=== PATIENT | male | born 1950 | race Caucasian/White ===

== ENCOUNTER 2018-12-15 11:01 | Emergency (ER) | payer MEDICARE, OTHER ==
[~2018-12-15] VITALS: Ht 177.8 cm; Wt 97.8 kg
[~2018-12-15 11:01] MED LIST: CYCL-259 PO; ENAL20TA PO; HYDR-3237 PO; SIMV80TA18 PO; VALS1TAB26 PO; VIT1TABL32 PO
[2018-12-15] MEDS ORDERED: SODIUM CHLORIDE FLUSH 10ML SYR IVF ONE (11:30)
[2018-12-15] MEDS ORDERED: AMLO10TA8 PO (11:38)
[2018-12-15] MEDS ORDERED: LOSA50TA14 PO (11:38)
[2018-12-15] MEDS ORDERED: HYDR12.517 PO (11:38)
[2018-12-15] MEDS ORDERED: ATOR-2 PO (11:38)
--- NOTE | 2018-12-15 11:42 | NUR ---
PT AMBULATORY TO ROOM 14 W/ C/O [facility] STARTED YESTERDAY AND TODAY HE STARTED LOOKING AT SX ON [employer] AND SAID HE DID FAST AND FELT FUNNY AND FELT LIKE ONE SIDE OF HIS FACE WAS DROOPING. PT DENIES HX TIA/CVA. PT RESTING ON [place]. NADN. MONITORS IN PLACE. PIV INITIATED.
[2018-12-15 11:59] LABS: BASOPHILS # (AUTO) 0.02 x10^3/uL (0-0.1); BASOPHILS % (AUTO) 0 % (0-1); EOSINOPHILS # (AUTO) 0.09 x10^3/uL (0-0.4); EOSINOPHILS % (AUTO) 1 % (1-7); LYMPHOCYTES # (AUTO) 1.51 x10^3/uL (1-3.4); LYMPHOCYTES % (AUTO) 24 % (22-44); MD NO; MEAN CORPUSCULAR HEMOGLOBIN 34.9 pg (27.5-34.5); MEAN CORPUSCULAR HGB CONC 34.9 g/dL (33.2-36.2); MEAN CORPUSCULAR VOLUME 99.8 fL (81-97); MEAN PLATELET VOLUME 7.6 fL (7.4-10.4); MONOCYTES # (AUTO) 0.43 x10^3/uL (0.2-0.8); MONOCYTES % (AUTO) 7 % (2-9); NEUTROPHILS # (AUTO) 4.24 x10^3/uL (1.8-6.8); NEUTROPHILS % (AUTO) 67 % (42-75); PLATELET COUNT 240 x10^3/uL (130-400); RED BLOOD COUNT 4.44 x10^6/uL (4.38-5.82); RED CELL DISTRIBUTION WIDTH 12.8 % (9.4-14.8)
[2018-12-15 12:08] LABS: INTERNATIONAL NORMALIZED RATIO 1.03 (0.93-1.1); PROTHROMBIN TIME 10.8 Seconds (9.6-11.5)
[2018-12-15 12:10] LABS: ALANINE AMINOTRANSFERASE 33 U/L (12-78); ALBUMIN 4.2 g/dL (3.4-5.0); ANION GAP 6 mmol/L (5-15); CALCIUM 9.4 mg/dL (8.5-10.1); CHLORIDE 104 mmol/L (98-107); CREATININE 1.16 mg/dL (0.7-1.3)
[2018-12-15 12:12] LABS: ALKALINE PHOSPHATASE 63 U/L (45-117); TOTAL PROTEIN 7.4 g/dL (6.4-8.2)
--- NOTE | 2018-12-15 12:23 | NUR ---
PT CHART REVIEWED AND PLACED FOR RECHECK.
[2018-12-15 12:38] VITALS: BP 151/92
--- NOTE | 2018-12-15 12:38 | NUR ---
PT TAKEN FOR MRI.
--- NOTE | 2018-12-15 13:00 | NUR ---
REPORT RECEIVED FROM PRAKASH THORNTON. PT IN MRI AT THIS TIME.
== END 2018-12-15 13:38 | disposition home or self-care (01) ==
LOC: ED 13:09
DX: R53.1 Weakness (principal); R20.2 Paresthesia of skin; R51 Headache; I10 Essential (primary) hypertension; E78.5 Hyperlipidemia, unspecified
CPT/HCPCS: 36415; 70450; 70551; 80053; 85025; 85610; 85730; 93005; 99284